=== PATIENT | female | born 1990 | race African-American/Black ===

== ENCOUNTER 2016-04-20 09:25 | Emergency (ER) | payer OTHER ==
[~2016-04-20] VITALS: Ht 172.7 cm; Wt 93.2 kg
[2016-04-20] MEDS ORDERED: METF500T4 PO (10:02)
[2016-04-20] MEDS ORDERED: PSEUDOEPHEDRINE HCL 30 MG TABLET PO ONE (12:15)
[2016-04-20] MEDS ORDERED: ACETAMINOPHEN 325 MG TABLET PO ONE (12:15)
[2016-04-20] MEDS ORDERED: OSELTAMIVIR PHOSPHATE 75 MG CAPSULE PO ONE (12:15)
[2016-04-20] MEDS ORDERED: GuaiFENesin/D-METHORPHAN [SUGAR-FREE] 200-20MG/10 ML SYRUP UDCUP PO ONE (12:15)
[2016-04-20 12:56] LABS: INFLUENZA TYPE B NEGATIVE FOR TYPE B (NEGATIVE)
[2016-04-20 13:17] VITALS: BP 109/77
== END 2016-04-20 13:19 | disposition home or self-care (01) ==
LOC: EMS 09:27
DX: J06.9 Acute upper respiratory infection, unspecified (principal); H92.03 Otalgia, bilateral
CPT/HCPCS: 87804; 99284